=== PATIENT | male | born 1975 | race Caucasian/White ===

== ENCOUNTER 2019-01-05 16:23 | Emergency (ER) | payer MEDICAID ==
[2019-01-05] MEDS ORDERED: LIDOCAINE 1% INJ-PF (10 MG/ML) 30 ML SDV INJ ONE ×2 (16:54→19:34)
[2019-01-05] MEDS ORDERED: MORPHINE SULFATE 10 MG/ML INJ IM ONE (16:54)
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
--- NOTE | 2019-01-05 17:34 | RADIOLOGY REPORT (SQ) ---
EXAM DESCRIPTION: ELBOW LEFT OVER 2 VIEWS COMPLETED DATE/TIME: 01/05/2019 5:14 pm REASON FOR STUDY: left elbow injury, laceration from glass' COMPARISON: None. NUMBER OF VIEWS: Four views. TECHNIQUE: AP, lateral, and both oblique radiographic images acquired of the left elbow. LIMITATIONS: None. FINDINGS: MINERALIZATION: Normal. BONES: No acute fracture or dislocation. No worrisome bone lesions. JOINT: No effusion. SOFT TISSUES: No soft tissue swelling. No foreign body. OTHER: No other significant finding. IMPRESSION: NEGATIVE STUDY OF THE LEFT ELBOW. NO RADIOGRAPHIC EVIDENCE OF ACUTE INJURY. TECHNICAL DOCUMENTATION: JOB ID: [id number] [employer]- All Rights Reserved Reading location - IP/workstation name: [email or web address]
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
[2019-01-05 22:36] VITALS: BP 140/81
== END 2019-01-05 20:40 | disposition home or self-care (01) ==
LOC: ER 16:23
PROC: 0KQ80ZZ Repair Left Upper Arm Muscle, Open Approach (ICD-10-PCS; principal; 2019-01-05)
DX: S51.012A Laceration without foreign body of left elbow, initial encounter (principal); W22.09XA Striking against other stationary object, initial encounter; G83.14 Monoplegia of lower limb affecting left nondominant side; G83.11 Monoplegia of lower limb affecting right dominant side; Z86.73 Personal history of transient ischemic attack (TIA), and cerebral infarction without residual deficits; Z87.81 Personal history of (healed) traumatic fracture
CPT/HCPCS: 13121; 99283; 96372; 73080; J2270